=== PATIENT | female | born 1960 | race Caucasian/White ===

== ENCOUNTER 2016-10-01 09:36 | Day surgery (SDC) | payer BC ==
[~2016-10-01] VITALS: Ht 167.6 cm; Wt 94.7 kg
[2016-10-01 10:01] VITALS: BP 126/64; PULSE 77; TEMP 97.9
[2016-10-01] MEDS ORDERED: PRILOSEC 20MG20 MG PO (10:24)
[2016-10-01] MEDS ORDERED: PRINIVIL10 MG PO (10:25)
[2016-10-01] MEDS ORDERED: JANUVIA 100MG100 MG PO (10:26)
[2016-10-01] MEDS ORDERED: PRAVACHOL 20MG20 MG PO (10:26)
[2016-10-01] MEDS ORDERED: SLO-NIACIN500 MG PO (10:27)
[2016-10-01] MEDS ORDERED: LANTUS100 U/ML SQ (10:27)
[2016-10-01] MEDS ORDERED: ASPIRIN 32325 MG/TAB PO (10:28)
[2016-10-01] MEDS ORDERED: CANA300T PO (10:28)
[2016-10-01 12:02] VITALS: BP 112/62; PULSE 81; TEMP 97.8
[2016-10-01 12:17] VITALS: BP 108/65; PULSE 75
[2016-10-01 12:32] VITALS: BP 98/59; PULSE 72
== END 2016-10-01 12:55 | disposition home or self-care (01) ==
LOC: SDCO 09:36
DX: K21.0 Gastro-esophageal reflux disease with esophagitis (principal); R13.12 Dysphagia, oropharyngeal phase; I10 Essential (primary) hypertension; E11.9 Type 2 diabetes mellitus without complications; Z79.899 Other long term (current) drug therapy
CPT/HCPCS: J2250; J3010; J7030

== ENCOUNTER → 2019-10-25 | Outpatient (CLI) | payer OTHER ==
[~2019-10-25] MED LIST: ASPIRIN 32325 MG/TAB PO; CANA300T PO; JANUVIA 100MG100 MG PO; LANTUS100 U/ML SQ; PRAVACHOL 20MG20 MG PO; PRILOSEC 20MG20 MG PO; PRINIVIL10 MG PO; SLO-NIACIN500 MG PO
== END ==
LOC: MC.RAD 09-06 09:15
DX: Z01.419 Encounter for gynecological examination (general) (routine) without abnormal findings (principal); Z12.31 Encounter for screening mammogram for malignant neoplasm of breast

== ENCOUNTER → 2022-11-25 | Outpatient (CLI) | payer OTHER | LOC: MC.RAD 09:15 | DX: Z12.31 Encounter for screening mammogram for malignant neoplasm of breast (principal) ==

== ENCOUNTER → 2023-12-21 | Outpatient (CLI) | payer OTHER | LOC: MC.RAD 07:41 | DX: Z12.31 Encounter for screening mammogram for malignant neoplasm of breast (principal) ==